=== PATIENT | female | born 1990 | race Caucasian/White ===

== ENCOUNTER 2017-01-11 19:31 | Observation (INO) | payer OTHER ==
[~2017-01-11] VITALS: Ht 162.6 cm; Wt 102.1 kg
[2017-01-11] MEDS ORDERED: SODIUM CHLORIDE 0.9% FLUSH 10 ML FLUSH IV FLUSH PRN (20:30)
[2017-01-11] MEDS ORDERED: ZOLPIDEM TARTRATE 5 MG TAB PO PRN (20:30)
[2017-01-11] MEDS ORDERED: ONDANSETRON HCL 4 MG/2 ML VIAL IV PUSH PRN (20:30)
[2017-01-11] MEDS ORDERED: ALUMINUM/MAGNESIUM/SIMETH 30 ML CUP PO PRN (20:30)
--- NOTE | 2017-01-11 20:37 | HHI.HP ---
HPI Chief Complaint 34 week IUP with contractions, spotting and decreased movement Date Seen: Jan 11, 2017 Time Seen: 20:31 Travel History International Travel<30 Days: No Contact w/Intl Traveler<30Days: No Known Affected Area: No History of Present Illness HPI 26 yo sf P0 at 34 weeks who is a patient of Dr. Day here with above concerns. Baby began to move on arrival. having lower back pain that comes and goes. No leaking, No HOLLOWAY ,N V or RUQT Weeks Gestation: 34 Para: 0 : 1 History Past Medical History Medical History: Denies Significant Hx Past Surgical History Surgical History: No Previous Surgery Family History Family History: Negative Social History Alcohol Use: No Tobacco Use: No Substance Abuse: No Allergies-Medications (Allergen,Severity, Reaction): Coded Allergies: No Known Allergies (Unverified , 01/11/17) Review of Systems General / Constitutional: No: Fever, Weight Gain, Chills, Other Physical Exam Narrative GENERAL: Well-nourished, well-developed patient. SKIN: Warm and dry. HEAD: Normocephalic and atraumatic. EYES: No scleral icterus. No injection or drainage. ENT: No nasal drainage noted. Mucous membranes pink. Airway patent. NECK: Supple, trachea midline. No JVD. CARDIOVASCULAR: Regular rate and rhythm without murmurs, gallops, or rubs. RESPIRATORY: Breath sounds equal bilaterally. No accessory muscle use. BREASTS: Bilateral exam showed no masses , no retractions, no nipple discharge. ABDOMEN/GI: Abdomen soft, non-tender, bowel sounds present, no rebound, no guarding Gravid to [-] weeks size Fundal Height: [-] long/closed/posterior category 1 strip EXTREMITIES: No cyanosis or edema. BACK: Nontender without obvious deformity. No CVA tenderness. NEUROLOGICAL: Awake and alert. Motor and sensory grossly within normal limits. Five out of 5 muscle strength in all muscle groups. Normal speech. Caprini VTE Risk Assessment Caprini VTE Risk Assessment: No/Low Risk (score <= 1) Caprini Risk Assessment Model Point Value = 1 Point Value = 2 Point Value = 3 Point Value = 5 Age 41-60 Minor surgery BMI > 25 kg/m2 Swollen legs Varicose veins or History of unexplained or recurrent spontaneous Oral contraceptives or hormone replacement Sepsis (< 1 month) Serious lung disease, including pneumonia (< 1 month) Abnormal pulmonary function Acute myocardial infarction Congestive heart failure (< 1 month) History of inflammatory bowel disease Medical patient at bed rest Age 61-74 Arthroscopic surgery Major open surgery (> 45 min) Laparoscopic surgery (> 45 min) Malignancy Confined to bed (> 72 hours) Immobilizing plaster cast Central venous access Age >= 75 History of VTE Family history of VTE Factor V Leiden Prothrombin [id number] Lupus anticoagulant Anticardiolipin antibodies Elevated serum homocysteine Heparin-induced thrombocytopenia Other congenital or acquired thrombophilia Stroke (< 1 month) Elective arthroplasty Hip, pelvis, or leg fracture Acute spinal cord injury (< 1 month) Prophylaxis Regimen Total Risk Factor Score Risk Level Prophylaxis Regimen 0-1 Low Early ambulation 2 Moderate Order ONE of the following: *Sequential Compression Device (SCD) *Heparin 5000 units SQ BID 3-4 Higher Order ONE of the following medications: *Heparin 5000 units SQ TID *Enoxaparin/Lovenox 40 mg SQ daily (WT < 150 kg, CrCl > 30 mL/min) *Enoxaparin/Lovenox 30 mg SQ daily (WT < 150 kg, CrCl > 10-29 mL/min) *Enoxaparin/Lovenox 30 mg SQ BID (WT < 150 kg, CrCl > 30 mL/min) AND/OR *Sequential Compression Device (SCD) 5 or more Highest Order ONE of the following medications: *Heparin 5000 units SQ TID (Preferred with Epidurals) *Enoxaparin/Lovenox 40 mg SQ daily (WT < 150 kg, CrCl > 30 mL/min) *Enoxaparin/Lovenox 30 mg SQ daily (WT < 150 kg, CrCl > 10-29 mL/min) *Enoxaparin/Lovenox 30 mg SQ BID (WT < 150 kg, CrCl > 30 mL/min) AND *Sequential Compression Device (SCD) Assessment/Plan Assessment and Plan 34 week IUP with mild ucs and spotting today no obvious etiology mild ucs on strip\will treat with hydration, ancef give procardia and ACS likely discharge in the am. Zuleyka Schaffer MD Jan 11, 2017 20:37
[2017-01-11] MEDS: SODIUM CHLORIDE 0.9% FLUSH 10 ML FLUSH IV FLUSH SCH (21:00)
[2017-01-11 21:38] LABS: AUTOMATED NEUTROPHIL # 9.7 TH/MM3 (1.8-7.7); BASOPHIL % 0.2 % (0.0-2.0); EOSINOPHIL # 0.1 TH/MM3 (0-0.4); EOSINOPHIL % 0.8 % (0.0-4.0); HEMATOCRIT 36.9 % (35.0-46.0); LYMPH % 16.5 % (9.0-44.0); LYMPHOCYTE # 2.2 TH/MM3 (1.0-4.8); MEAN CELL VOLUME 87.9 FL (80.0-100.0); MEAN CORPUSCULAR HEMOGLOBIN 29.4 PG (27.0-34.0); MEAN CORPUSCULAR HGB CONC 33.4 % (32.0-36.0); NEUT % 73.5 % (16.0-70.0); PLATELET COUNT 188 TH/MM3 (150-450); RED BLOOD COUNT 4.19 MIL/MM3 (4.00-5.30); RED CELL DISTRIBUTION WIDTH 14.4 % (11.6-17.2); WHITE BLOOD COUNT 13.2 TH/MM3 (4.0-11.0)
[2017-01-11 21:42] LABS: HEMO FLAGS AUTO DIFF
[2017-01-11 21:50] LABS: BICARBONATE 21.8 MEQ/L (21.0-32.0); POTASSIUM 4.1 MEQ/L (3.5-5.1)
[2017-01-11 21:51] LABS: BACTERIA, URINE RARE /hpf; BLOOD, URINE NEG (NEG); COMMENT (UR) CULT NOT INDICATED; CULTURE IF INDICATED CULT NOT INDICATED; GLUCOSE,URINE NEG (NEG); KETONE, URINE NEG (NEG); NITRITE,URINE NEG (NEG); SQUAMOUS EPITHELIAL CELL URINE <1 /hpf (0-5); URINE COLOR COLORLESS (YELLW/STRAW)
[2017-01-11 21:58] VITALS: BP 111/61; PULSE 95; RESP 18; TEMP 97.9
[2017-01-11] MEDS ORDERED: BETAMETHASONE SOD PHOS/ACETATE SUSP 30 MG/5 ML VIAL IM SCH (22:00)
[2017-01-11 22:18] LABS: BANDS 5 % (0-6); MYELOCYTES 2 % (0-0); NEUTROPHIL # MANUAL DIFF 9.4 TH/MM3 (1.8-7.7); PLATELET ESTIMATE SMEAR NORMAL (NORMAL); PLATELET MORPHOLOGY NORMAL (NORMAL); POLYS (SEG NEUTROPHILS) 64 % (16-70); SCAN/DIFF FINAL DIFF MANUAL; WBC DIFF SAMPLE 100
[2017-01-11] MEDS ORDERED: PREN29TA PO (22:53)
[2017-01-11] MEDS ORDERED: LISD20 PO (22:55)
[2017-01-11] MEDS: NIFEdipine 10 MG CAP PO SCH (23:03)
[2017-01-11] MEDS: LACTATED RINGER'S 1000 ML INJ 1,000 ML IV SCH (23:04)
[2017-01-11 23:11] VITALS: BP 108/61; PULSE 100
[2017-01-11 23:12] VITALS: RESP 18
[2017-01-11 23:15] VITALS: TEMP 98
[2017-01-11] MEDS ORDERED: ceFAZolin INJ 1,000 MG VIAL IM ONE (23:15)
[2017-01-12] MEDS ORDERED: ceFAZolin 1,000 MG/NS 100 ML IV ONE ×2 (00:15)
[2017-01-12 01:48] VITALS: RESP 18
[2017-01-12 01:49] VITALS: BP 85/65; PULSE 102; TEMP 98
[2017-01-12 04:30] VITALS: BP 113/50; PULSE 92; RESP 18
[2017-01-12 04:44] VITALS: TEMP 97.8
[2017-01-12] MEDS: NIFEdipine 10 MG CAP PO SCH (07:21)
[2017-01-12] MEDS: LACTATED RINGER'S 1000 ML INJ 1,000 ML IV SCH (07:22)
--- NOTE | 2017-01-12 08:23 | PD.OB.ANTE ---
Subjective Interval History Quiet night less cramping no spotting Objective Vital Signs Vital Signs Date Time Temp Pulse Resp B/P (MAP) Pulse Ox O2 Delivery O2 Flow Rate FiO2 01/12/17 04:44 97.8 01/12/17 04:30 18 01/12/17 04:30 92 113/50 (71) 01/12/17 01:49 98.0 01/12/17 01:49 102 85/65 (72) 01/12/17 01:48 18 01/11/17 23:15 98.0 01/11/17 23:12 18 01/11/17 23:11 100 01/11/17 23:11 108/61 (77) 01/11/17 21:58 97.9 95 18 111/61 (78) Lab & Micro Results Test 01/11/17 19:45 01/11/17 20:45 Urine Color COLORLESS Urine Turbidity CLEAR Urine pH 7.0 Urine Specific [place] 1.004 Urine Protein NEG mg/dL Urine Glucose (UA) NEG mg/dL Urine Ketones NEG mg/dL Urine Occult Blood NEG Urine Nitrite NEG Urine Bilirubin NEG Urine Urobilinogen LESS THAN 2.0 MG/DL Urine Leukocyte Esterase MOD Urine RBC LESS THAN 1 /hpf Urine WBC 1 /hpf Urine Squamous Epithelial Cells <1 /hpf Urine Bacteria RARE /hpf Microscopic Urinalysis Comment CULT NOT INDICATED Urine Opiates Screen NEG Urine Barbiturates Screen NEG Urine Amphetamines Screen NEG Urine Benzodiazepines Screen NEG Urine Cocaine Screen NEG Urine Cannabinoids Screen NEG White Blood Count 13.2 TH/MM3 Red Blood Count 4.19 MIL/MM3 Hemoglobin 12.3 GM/DL Hematocrit 36.9 % Mean Corpuscular Volume 87.9 FL Mean Corpuscular Hemoglobin 29.4 PG Mean Corpuscular Hemoglobin Concent 33.4 % Red Cell Distribution Width 14.4 % Platelet Count 188 TH/MM3 Mean Platelet Volume 8.9 FL Neutrophils (%) (Auto) 73.5 % Lymphocytes (%) (Auto) 16.5 % Monocytes (%) (Auto) 9.0 % Eosinophils (%) (Auto) 0.8 % Basophils (%) (Auto) 0.2 % Neutrophils # (Auto) 9.7 TH/MM3 Lymphocytes # (Auto) 2.2 TH/MM3 Monocytes # (Auto) 1.2 TH/MM3 Eosinophils # (Auto) 0.1 TH/MM3 Basophils # (Auto) 0.0 TH/MM3 CBC Comment AUTO DIFF Differential Total Cells Counted 100 Neutrophils % (Manual) 64 % Band Neutrophils % 5 % Lymphocytes % 26 % Monocytes % 3 % Neutrophils # (Manual) 9.4 TH/MM3 Myelocytes 2 % Differential Comment FINAL DIFF MANUAL Platelet Estimate NORMAL Platelet Morphology Comment NORMAL Blood Urea Nitrogen 10 MG/DL Creatinine 0.50 MG/DL Random Glucose 96 MG/DL Calcium Level 8.6 MG/DL Sodium Level 135 MEQ/L Potassium Level 4.1 MEQ/L Chloride Level 104 MEQ/L Carbon Dioxide Level 21.8 MEQ/L Anion Gap 9 MEQ/L Estimat Glomerular Filtration Rate 149 ML/MIN Physical Exam GENERAL: Well-nourished, well-developed patient. CARDIOVASCULAR: Regular rate and rhythm without murmurs, gallops, or rubs. RESPIRATORY: Breath sounds equal bilaterally. No accessory muscle use. ABDOMEN/GI: Abdomen soft, non-tender. 34 cm cervix 80% effaced/closed /anterior and soft category 1 strip mild uterine irritablity only EXTREMITIES: No cyanosis or edema, non-tender, without signs of DVT. Assessment and Plan Assessment and Plan 34 week IUP with mild ucs and spotting today no obvious etiology mild ucs on strip\will treat with hydration, ancef give procardia and ACS likely discharge in the am. HD 2 34 4/7 IUP WITH RESOLUTION OF SYMPTOMS ON PROCARDIA. RECEIVED ACS AND ONE GRAM ANCEF HOME TODAY ON MODIFIED REST (SHE IS A MEDICAL STUDENT IN A NON TRADITIONAL PROGRAM HOME AFTER SECOND ACS INJECTION Zuleyka Schaffer MD Jan 12, 2017 08:23
[2017-01-12] MEDS ORDERED: NIFE1TAB85 PO (08:25)
--- NOTE | 2017-01-12 08:25 | HHI.DCPOC ---
Discharge Care Plan Report Symptoms to Your Doctor -Temperature above 100.5 degrees -Redness, of incision or excessive or foul smelling drainage -Unusual pain or calf pain -Increased vaginal bleeding -Painful or difficulty urinating -Feelings of extreme sadness or anxiety after 2 weeks Goals to Promote Your Health * To prevent worsening of your condition and complications * To maintain your health at the optimal level Directions to Meet Your Goals Take your medications as prescribed Follow your dietary instruction Follow activity as directed Ensure plenty of rest for recovery Drink fluids for hydration Keep your appointments as scheduled Take your immunizations and boosters as scheduled If your symptoms worsen call your PCP, if no PCP go to Urgent Care Center or Emergency Room Smoking is Dangerous to Your Health. Avoid second hand smoke Call the 24-hour crisis hotline for domestic abuse at Zuleyka Schaffer MD Jan 12, 2017 08:25
[2017-01-12] MEDS: SODIUM CHLORIDE 0.9% FLUSH 10 ML FLUSH IV FLUSH SCH (09:00)
[2017-01-12] MEDS ORDERED: MULTIVIT/MIN/PREN/FOL AC/IRON PRENATAL TAB PO SCH (09:00)
[2017-01-12] MEDS ORDERED: BETAMETHASONE SOD PHOS/ACETATE SUSP 30 MG/5 ML VIAL IM ONE (10:00)
[2017-01-15 10:46] LABS: PHENCYCLIDINE URINE NEG (NEG)
[2017-01-15 10:47] LABS: BATH SALTS (MDPV) UR NEG (NEG); ECSTASY (MDMA) UR NEG (NEG); HEROIN (6-ACETYLMORPHINE) UR NEG (NEG); K2 SPICE UR NEG (NEG); OBGABAPENTIN UR NEG (NEG); OBHYDROMORPHONE U NEG (NEG); OBMETHADONE UR NEG (NEG)
== END 2017-01-12 11:06 | disposition home or self-care (01) ==
LOC: HOBED 19:31 → H2EA 20:34
PROVIDERS: ADMIT Obstetrics & Gynecology; ATTEND Obstetrics & Gynecology
DX: O47.03 False labor before 37 completed weeks of gestation, third trimester (principal); Z3A.34 34 weeks gestation of pregnancy; Z03.89 Encounter for observation for other suspected diseases and conditions ruled out
CPT/HCPCS: 80048; 80307; 81001; 85007; 85027; 96360; 96361; 96372; 99285; G0378; G0481; J0690; J0702; J7120

== ENCOUNTER 2017-02-06 21:45 | Emergency (ER) | payer OTHER ==
[~2017-02-06] VITALS: Ht 162.6 cm; Wt 106.6 kg
[~2017-02-06 21:45] MED LIST: LISD20 PO; NIFE1TAB85 PO; PREN29TA PO
--- NOTE | 2017-02-06 23:10 | PD ---
History of Present Illness History of Present Illness NST report Indications: IUP at 38 weeks, maternal obesity, decreased movement heart rate with baseline in the 120s, moderate long-term variability, good accelerations, no decelerations noted. There is a reactive NST and a category 1 heart rate tracing Follow-up: As clinically indicated Final diagnosis: IUP at 38 weeks, maternal obesity, decreased movement resolved and reassuring testing with reactive NST and biophysical profile 8 out of 8 Valeri Mejia MD Feb 06, 2017 23:10
--- NOTE | 2017-02-06 23:18 | PD ---
HPI Chief Complaint Leaking of fluid, decreased movement Travel History International Travel<30 Days: No Contact w/Intl Traveler<30Days: No Known Affected Area: No History of Present Illness HPI 26-year-old G2 1 P0, IUP at 38.1 care, complicated by maternal obesity, GBS positive The patient presents complaining of decreased movement since 5 PM. She attempted to do kick counts with only 1 movement noted however now reports she is feeling normal movement. She also reports that she's been having intermittent uterine cramping. She reports that she woke up from a nap about 4:30 PM with her shorts drenched with fluid but denies leaking of fluid since. She also reports that she has had an upper respiratory infection for 2- 3 days. She reports that she had an episode of very vigorous coughing this afternoon to the point that she had an episode of emesis with mucus in her recent food intake. She reports that she felt nauseous about a half-hour later and had another small episode of emesis, but denies any further emesis and has been able to tolerate by mouth intake. She denies any vaginal bleeding or painful contractions. Weeks Gestation: 38 Para: 0 History Past Surgical History Narrative Surgical Hand surgery Family History Family History: Negative Social History Alcohol Use: No Tobacco Use: No Substance Abuse: No Allergies-Medications (Allergen,Severity, Reaction): Coded Allergies: No Known Allergies (Unverified , 02/06/17) Home Meds Reported Medications Lisdexamfetamine (Vyvanse) 20 Mg Cap, 20 MG PO DAILY Y for weekends, #30 CAP 0 Refills 01/11/17 Vit-Iron Carbonyl ( Plus Iron 29-1 mg) 29 Mg Iron-1 Mg Tab, 1 TAB PO DAILY for Nutritional Supplement, #30 TAB 0 Refills 01/11/17 Review of Systems Except as stated in HPI: all other systems reviewed are Neg Physical Exam Narrative GENERAL: Well-nourished, well-developed patient. SKIN: Warm and dry. HEAD: Normocephalic and atraumatic. EYES: No scleral icterus. No injection or drainage. ENT: No nasal drainage noted. Mucous membranes pink. Airway patent. NECK: Supple, trachea midline. No JVD. CARDIOVASCULAR: Regular rate and rhythm without murmurs, gallops, or rubs. RESPIRATORY: Breath sounds equal bilaterally. No accessory muscle use. BREASTS: Deferred ABDOMEN/GI: Abdomen soft, non-tender, bowel sounds present, no rebound, no guarding Gravid GENITOURINARY: External Genitalia: intact and normal in appearance. Grossly normal BUS. No evidence of gross rupture of membrane. Amniosure negative. Grossly normal rugated, no cervical or vaginal masses noted. SVE 1/30-40/-3/posterior FHT's: heart tones in the 120s with moderate long-term variability, good accelerations, no decelerations noted EXTREMITIES: No cyanosis or edema. BACK: Nontender without obvious deformity. NEUROLOGICAL: Awake and alert. Motor and sensory grossly within normal limits. Five out of 5 muscle strength in all muscle groups. Normal speech. Psychiatric: Grossly normal memory and affect Musculoskeletal: Grossly normal range of motion, gait, muscle strength Data Data Orders Orders Us Ob Bpp Wo Nst (02/06/17 ) Vital Signs (Adult) .ON ADMISSION (02/06/17 22:39) ^ Labor Status (02/06/17 22:39) ^ Hydration (02/06/17 22:39) MDM Plan Assessment/plan: 1. IUP at 38.1 2. Decreased movement: Patient now feels normal movement. Reassuring testing with reactive NST, biophysical profile was performed and was 8 out of 8 for total score of 10 out of 10 3. Leaking of fluid: No evidence of gross rupture of membranes, amniosure negative, FERNANDO normal informal ultrasound. PROM precautions are given. 4. No evidence of active labor, strict labor precautions are given 5. Maternal obesity 6. well-being: Reassuring testing with reactive NST and a category 1 heart rate tracing. FHR reassuring and appropriate for gestational age. BPP 10 out of 10. kick counts daily. 7. Follow up with primary OB in 2-3 days or sooner if needed 8. Emesis: Likely related to bilateral coughing episode, return if further episodes of emesis however none since approximately 5 PM and has tolerated regular diet since. Patient advised to return for nausea vomiting diarrhea or other signs of gastroenteritis. 9. URI: Follow-up for fever or chills or abdominal normal color discharge or other concerns, follow-up if no resolution by 1 week length of symptoms Diagnosis Diagnosis: Primary Impression: 38 weeks gestation of Additional Impression: False labor after 37 weeks of gestation without delivery Disposition: 01 DISCHARGE HOME Condition: Valeri Franco MD Feb 06, 2017 23:18
== END 2017-02-06 23:50 | disposition home or self-care (01) ==
LOC: HOBED 21:45
DX: O47.1 False labor at or after 37 completed weeks of gestation (principal); O99.513 Diseases of the respiratory system complicating pregnancy, third trimester; J06.9 Acute upper respiratory infection, unspecified; O99.213 Obesity complicating pregnancy, third trimester; E66.9 Obesity, unspecified; Z3A.38 38 weeks gestation of pregnancy
CPT/HCPCS: 59025; 76815; 76816; 76819; 84112

== ENCOUNTER 2017-02-16 15:59 | Emergency (ER) | payer OTHER ==
[~2017-02-16 15:59] MED LIST changes: -NIFE1TAB85 PO
--- NOTE | 2017-02-16 18:53 | PD ---
HPI Chief Complaint Leaking of fluid Travel History International Travel<30 Days: No Contact w/Intl Traveler<30Days: No Known Affected Area: No History of Present Illness HPI 26-year-old , IUP at 39.4 care, complicated by obesity, 70 pound weight gain, GBS positive Patient presents complaining of some mucus the streaks of blood today. She was seen in the office yesterday and had a vaginal exam. She denies any vaginal bleeding. She also reports that her pants and underwear were soaked at 1725 yesterday, she reports that she used 1 pad and then change the pad at 12:30 this afternoon and has not required another pad since, She said she noted clear fluid. She denies any other leaking of fluid except as described. She reports good movement. She denies any regular painful contractions. Weeks Gestation: 39 Para: 0 : 2 History Past Medical History Narrative Medical Obesity Obstetric History Obstetric History , SAB 1 Past Surgical History Narrative Surgical Hand surgery Family History Family History: Negative Social History Alcohol Use: No Tobacco Use: No Substance Abuse: No Allergies-Medications (Allergen,Severity, Reaction): Coded Allergies: No Known Allergies (Unverified , 02/06/17) Home Meds Reported Medications Lisdexamfetamine (Vyvanse) 20 Mg Cap, 20 MG PO DAILY Y for weekends, #30 CAP 0 Refills 01/11/17 Vit-Iron Carbonyl ( Plus Iron 29-1 mg) 29 Mg Iron-1 Mg Tab, 1 TAB PO DAILY for Nutritional Supplement, #30 TAB 0 Refills 01/11/17 Review of Systems Except as stated in HPI: all other systems reviewed are Neg Physical Exam Narrative GENERAL: Well-nourished, well-developed patient. SKIN: Warm and dry. HEAD: Normocephalic and atraumatic. EYES: No scleral icterus. No injection or drainage. ENT: No nasal drainage noted. Mucous membranes pink. Airway patent. NECK: Supple, trachea midline. No JVD. CARDIOVASCULAR: Regular rate and rhythm without murmurs, gallops, or rubs. RESPIRATORY: Breath sounds equal bilaterally. No accessory muscle use. BREASTS: Deferred ABDOMEN/GI: Abdomen soft, non-tender, bowel sounds present, no rebound, no guarding Gravid GENITOURINARY: External Genitalia: intact and normal in appearance. Normal BUS. Physiologic discharge noted. No evidence of vaginal bleeding. Valsalva negative. Grossly normal rugae. No cervical or vaginal masses noted. SVE 2-3/ thick/high, posterior. membranes were palpated. Amniosure negative. FHT's: heart tones are in the 120s with moderate long-term variability, good accelerations, no decelerations EXTREMITIES: No cyanosis or edema. BACK: Nontender without obvious deformity. No CVA tenderness. NEUROLOGICAL: Awake and alert. Motor and sensory grossly within normal limits. Five out of 5 muscle strength in all muscle groups. Normal speech. Psychiatric: Grossly normal memory and affect Musculoskeletal: Grossly normal range of motion, gait, muscle strength MDM Plan Assessment/plan: 1. IUP at 39.4 2. No evidence of PROM: Negative amniosure, negative Valsalva, and normal fluid on ultrasound. Strict PROM precautions 3. Obesity 4. No evidence of labor, labor precautions 5. No evidence of vaginal bleeding 6. well-being: Reassuring testing with reactive NST and category 1 heart rate tracing. In addition of BPP was performed which was 8 out of 8 or 10 out of 10 with addition of the NST. FHR is reassuring and appropriate for gestational age. kick counts daily. 7. Follow up with primary OB in 3 days for scheduled or sooner if needed Diagnosis Diagnosis: Primary Impression: 39 weeks gestation of Additional Impression: Encounter for suspected PROM, with rupture of membranes not found Disposition: 01 DISCHARGE HOME Condition: Valeri Franco MD Feb 16, 2017 18:53
--- NOTE | 2017-02-16 18:59 | PD ---
History of Present Illness History of Present Illness NST and biophysical report Indications: IUP at 39 weeks, obesity, GBS positive, bleeding/leaking of fluid NST with heart rate baseline in the 120s with moderate long-term variability, good accelerations, no decelerations noted. The patient has a reactive NST and category 1 heart rate tracing A biophysical profile was performed BPP 8/8 and an FERNANDO of 12.47 with pockets of fluid at 3.30, 4.88, 2.99, 1.30. Gravid and 30 seconds breathing was noted flexion/extension, numerous movements, and normal FERNANDO meeting all criteria for a BPP of 8 out of 8 with NST component 10 out of 10 Final diagnosis IUP at 39 weeks, obesity, GBS positive, no evidence of PROM or vaginal bleeding, reassuring testing Follow-up as clinically indicated Valeri Mejia MD Feb 16, 2017 18:59
== END 2017-02-16 21:37 | disposition home or self-care (01) ==
LOC: HOBED 15:59
DX: O26.893 Other specified pregnancy related conditions, third trimester (principal); Z3A.39 39 weeks gestation of pregnancy
CPT/HCPCS: 59025; 76815; 84112

== ENCOUNTER 2017-02-19 05:12 | Inpatient (IN) | payer OTHER ==
--- NOTE | 2017-02-17 17:13 | MH ---
cc: KI MORRIS M.D. DATE OF ADMISSION 02/19/2017 DATE OF 1990 ADMISSION DIAGNOSIS Term for elective section. PATIENT HISTORY The patient is a 26-year-old female 2, para 0, last menstrual period was May 26, 2016. The patient's estimated gestational age is 39 weeks and 5 days at the time of this dictation, she will be 40 weeks by the time she is admitted. Her due date is confirmed by serial ultrasounds with first trimester ultrasounds confirming February 192016. The patient has a long history of ADHD and Vyvanse use through her psychiatrist. She also has a history of anxiety disorder. 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 Estimated weight is 9 pounds. Given these obstetrical factors, the recommendation is to proceed with elective section. ALLERGIES NO KNOWN DRUG ALLERGIES. PAST MEDICAL HISTORY 1. She has had hand surgery in the past for minor issue. 2. Status post spontaneous miscarriage in 2008 with a D&C. She denies any other systemic or chronic disease states. MEDICATIONS Current medications include: vitamins. She is no longer on Vyvanse. She was taking 20 milligrams alternating with 30 milligrams. The patient's group B strep status is positive. The patient's care has been unremarkable except for the fact that she has had significant weight gain. Her prepregnancy weight was approximately 170. Her recent weight in the office was 240. The patient's one hour Glucola was normal. The patient's blood type is A+. FAMILY HISTORY Noncontributory. PAST SURGICAL HISTORY Noncontributory. PHYSICAL EXAMINATION GENERAL: The patient is well-appearing, well-nourished female in no distress. VITAL SIGNS: Stable. Blood pressures 122/78. She weighs 240 pounds. She is 5 feet 4 inches. heart tones are in the 140s. HEENT: The patient's HEENT shows no adenopathy, thyromegaly. NECK: Supple. Full range of motion. LUNGS: Clear in all rubi. CARDIOVASCULAR: Cardiac is regular rate and rhythm. ABDOMEN: Gravid, full-term, fundal height is 42 cm. PELVIC: The patient's cervical exam was 50% and closed, posterior -2 position. Intact vertex presentation. NEUROLOGIC: The patient's neurologic examination is grossly intact, nonfocal. EXTREMITIES: Symmetrical, full range of motion. She has 1+ edema. Deep tendon reflexes were normal. No clonus. ASSESSMENT The patient at 40 weeks intrauterine gestation with large for gestational age baby, marginal pelvimetry with android pelvis, narrow pubic arch, history of anxiety disorder and ADHD, severe. GBS positive. PLAN Management admission for elective section at term. The patient will receive Ancef 2 grams prophylactically IV. Ki Morris MD [facility]/KK /4:40 PM /4:48 PM
[~2017-02-19] VITALS: Ht 162.6 cm; Wt 67.6 kg
[2017-02-19] VITALS (11 sets, daily range): BP systolic 108–126; BP diastolic 56–89; PULSE 87–101; RESP 15–20; TEMP 97.8–98.7; O2SAT 97–100
[2017-02-19 05:42] LABS: AUTOMATED NEUTROPHIL # 11.3 TH/MM3 (1.8-7.7); BASOPHIL # 0.1 TH/MM3 (0-0.2); BASOPHIL % 0.4 % (0.0-2.0); EOSINOPHIL # 0.1 TH/MM3 (0-0.4); EOSINOPHIL % 0.7 % (0.0-4.0); HEMATOCRIT 35.2 % (35.0-46.0); HEMOGLOBIN 12.3 GM/DL (11.6-15.3); LYMPH % 14.3 % (9.0-44.0); LYMPHOCYTE # 2.1 TH/MM3 (1.0-4.8); MEAN CELL VOLUME 87.2 FL (80.0-100.0); MEAN CORPUSCULAR HEMOGLOBIN 30.4 PG (27.0-34.0); MEAN CORPUSCULAR HGB CONC 34.9 % (32.0-36.0); MEAN PLATELET VOLUME 8.8 FL (7.0-11.0); MONO % 6.4 % (0.0-8.0); MONOCYTE # 0.9 TH/MM3 (0-0.9); NEUT % 78.2 % (16.0-70.0); PLATELET COUNT 194 TH/MM3 (150-450); RED BLOOD COUNT 4.04 MIL/MM3 (4.00-5.30); RED CELL DISTRIBUTION WIDTH 14.9 % (11.6-17.2); WHITE BLOOD COUNT 14.4 TH/MM3 (4.0-11.0)
[2017-02-19] MEDS ORDERED: CITRIC ACID-SODIUM CITRATE LIQ 30 ML UDC PO SCH (05:45)
[2017-02-19] MEDS ORDERED: LACTATED RINGER'S 1000 ML IV ONE (05:45)
[2017-02-19] MEDS ORDERED: ceFAZolin 2 GM PREMIX 50 ML IV SCH (05:45)
[2017-02-19 05:51] LABS: BACTERIA, URINE RARE /hpf; BILIRUBIN, URINE NEG (NEG); BLOOD, URINE NEG (NEG); GLUCOSE,URINE NEG (NEG); HYALINE CAST, URINE 4 /lpf (RARE); KETONE, URINE NEG (NEG); MUCUS URINE FEW /lpf (OCC); NITRITE,URINE NEG (NEG); PH, URINE 6.5 (5.0-8.5); SQUAMOUS EPITHELIAL CELL URINE 9 /hpf (0-5); TRANSITIONAL EPI CELLS, URINE <1 /hpf; URINE COLOR YELLOW (YELLW/STRAW); URINE LEUKOCYTE ESTERASE MOD (NEG)
[2017-02-19] MEDS: LACTATED RINGER'S 1000 ML IV SCH ×2 (06:29→19:20)
[2017-02-19 06:42] LABS: BANDS 12 % (0-6); LYMPHOCYTES 9 % (9-44); METAMYELOCYTES 1 % (0-1); MONOCYTES 6 % (0-8); NEUTROPHIL # MANUAL DIFF 12.2 TH/MM3 (1.8-7.7); POLYS (SEG NEUTROPHILS) 72 % (16-70)
[2017-02-19] MEDS ORDERED: ACETAMINOPHEN 1000 MG/100 ML 100 ML IV ONE (07:17)
[2017-02-19] MEDS ORDERED: MORPHINE SULFATE PF 5 MG/10 ML VIAL ONE (07:21)
--- NOTE | 2017-02-19 07:36 | HHI.DS ---
Admission Date Feb 19, 2017 at 05:12 Admitting Diagnosis Diagnosis: Delivery Date: Feb 19, 2017 : Primary Pt Condition on Discharge: Good Discharge Disposition: Discharge Home Discharge Instructions Diet Instructions: As Tolerated, No Restrictions Activities You Can Perform: Regular-No Restrictions, Shower Only-No Bath Activities to Avoid: Prolonged Standing, Strenuous Activity, Driving, Sexual Activity iK Day MD Feb 19, 2017 07:36
[2017-02-19] MEDS ORDERED: ONDANSETRON HCL 4 MG/2 ML VIAL IV PUSH PRN (07:45)
[2017-02-19] MEDS ORDERED: SODIUM CHLORIDE 0.9% FLUSH 10 ML FLUSH IV FLUSH PRN (07:45)
[2017-02-19] MEDS ORDERED: KETOROLAC TROMETHAMINE 60 MG/2 ML (IM) VIAL IM PRN (07:45)
[2017-02-19] MEDS ORDERED: SIMETHICONE 80 MG CHEWABLE TAB PO PRN (07:45)
[2017-02-19] MEDS ORDERED: oxyCODONE/ACETAMINOPHEN 5 MG/325 MG TAB PO PRN (07:45)
[2017-02-19] MEDS ORDERED: OXYTOCIN 30 UNITS-500ML PREMIX 500 ML IV ONE (08:00)
--- NOTE | 2017-02-19 08:54 | PD.OB.DELI ---
Procedure Note Section Procedure Performed by Ki Day Procedure: Primary Low Transverse Sec Indication for delivery: Maternal medical problems Informed consent obtained: For anesthesia, For procedure Confirmed correct: Patient, Procedure, Site, Time-out taken Anesthesia: Spinal Medication prior to procedure: As documented in eMAR Monitoring during procedure: Blood pressure monitoring, playground monitor, doppler, Pulse oximetry Urinary catheter: Inserted using sterile technique, To dependent drainage Sterile preparation: Duraprep, In usual fashion Position: Supine with wedge to right side, Supine with safety belt applied Operative Features Skin Incision: Pfannenstiel Uterine Incision: Low transverse w/knife / scissors Membranes Ruptured: Artificially Presentation: Occiput anterior Delivery date: Feb 19, 2017 Delivery time: 07:56 Delivery of : Assisted (vacuum x 1 pull) : Male One Minute : 8 Five Minute : 9 Weight: 3340 / 7#6oz Status of : Viable Placenta delivered: Intact Medications: Antibiotics, Oxytocin Procedure tolerated: Well Maternal Condition: Stable Condition: Stable Ki Day MD Feb 19, 2017 08:54
[2017-02-19] MEDS: SODIUM CHLORIDE 0.9% FLUSH 10 ML FLUSH IV FLUSH SCH ×2 (09:00→21:00)
[2017-02-19] MEDS ORDERED: OXYTOCIN 30 UNITS-500ML PREMIX 500 ML ONE (09:43)
[2017-02-19] MEDS ORDERED: EPIDURAL-NALOXONE HCL 0.4 MG/ML AMP IV PUSH PRN (10:15)
[2017-02-19] MEDS ORDERED: EPIDURAL-DIPHENHYDRAMINE HCL 50 MG CAP PO PRN (10:15)
[2017-02-19] MEDS ORDERED: EPIDURAL-DIPHENHYDRAMINE HCL 50 MG/ML VIAL IV PUSH PRN (10:15)
[2017-02-19] MEDS ORDERED: EPIDURAL-DO NOT ADMINISTER ANTICOAGULANTS PRN (10:15)
[2017-02-19] MEDS ORDERED: EPIDURAL-NO SYSTEMIC NARCOTICS PRN (10:15)
[2017-02-19] MEDS ORDERED: LACTATED RINGER'S 1000 ML INJ 1,000 ML IV SCH (12:33)
[2017-02-19] MEDS: IBUPROFEN 600 MG TAB PO PRN ×2 (16:49→22:53)
[2017-02-19] MEDS ORDERED: OXYTOCIN 30 UNITS-500ML PREMIX 500 ML IV PRN (17:45)
[2017-02-19] MEDS: DOCUSATE SODIUM 50 MG/SENNA 8.6 MG TAB PO PRN (22:52)
[2017-02-20] MEDS: LACTATED RINGER'S 1000 ML IV SCH ×2 (01:29→20:07)
[2017-02-20 04:00] VITALS: BP 107/60; PULSE 86; RESP 18; TEMP 97.9; O2SAT 97
[2017-02-20] MEDS: IBUPROFEN 600 MG TAB PO PRN ×3 (05:02→18:30)
[2017-02-20 08:00] VITALS: BP 119/62; PULSE 90; RESP 18; TEMP 97.6; O2SAT 98
[2017-02-20 09:32] LABS: AUTOMATED NEUTROPHIL # 10.7 TH/MM3 (1.8-7.7); BASOPHIL % 0.1 % (0.0-2.0); EOSINOPHIL # 0.1 TH/MM3 (0-0.4); EOSINOPHIL % 0.5 % (0.0-4.0); HEMATOCRIT 27.8 % (35.0-46.0); HEMOGLOBIN 9.7 GM/DL (11.6-15.3); LYMPH % 12.2 % (9.0-44.0); LYMPHOCYTE # 1.7 TH/MM3 (1.0-4.8); MEAN CELL VOLUME 87.4 FL (80.0-100.0); MEAN CORPUSCULAR HEMOGLOBIN 30.4 PG (27.0-34.0); MEAN CORPUSCULAR HGB CONC 34.8 % (32.0-36.0); MEAN PLATELET VOLUME 8.8 FL (7.0-11.0); MONO % 8.3 % (0.0-8.0); MONOCYTE # 1.1 TH/MM3 (0-0.9); NEUT % 78.9 % (16.0-70.0); PLATELET COUNT 151 TH/MM3 (150-450); RED BLOOD COUNT 3.18 MIL/MM3 (4.00-5.30); RED CELL DISTRIBUTION WIDTH 14.4 % (11.6-17.2); WHITE BLOOD COUNT 13.6 TH/MM3 (4.0-11.0)
[2017-02-20] MEDS: oxyCODONE/ACETAMINOPHEN 5 MG/325 MG TAB PO PRN ×3 (09:46→22:23)
[2017-02-20 12:00] VITALS: BP 115/62; PULSE 71; RESP 18; TEMP 98.1; O2SAT 99
--- NOTE | 2017-02-20 12:09 | HHI.OB ---
Subjective Post Operative Day: 1 Remarks Doing well Pain is controlled Baby is doing well Bleeding is normal. Objective Vitals/I&O Vital Signs Date Time Temp Pulse Resp B/P (MAP) Pulse Ox O2 Delivery O2 Flow Rate FiO2 02/20/17 08:00 97.6 90 18 119/62 (81) 98 02/20/17 04:00 97.9 86 18 107/60 (76) 97 02/19/17 23:42 90 18 115/67 (83) 02/19/17 23:42 98.2 98 02/19/17 20:00 98.4 96 20 109/56 (73) 97 02/19/17 14:30 97.9 02/19/17 14:30 95 18 122/61 (81) 97 Result Diagram: 02/20/17 08 Objective Remarks GENERAL: Well-nourished, well-developed patient. CARDIOVASCULAR: Regular rate and rhythm without murmurs, gallops, or rubs. RESPIRATORY: Breath sounds equal bilaterally. No accessory muscle use. ABDOMEN/GI: Abdomen soft, non-tender, bowel sounds present. Incision: Clean, dry and intact. Fundus: Firm, non-tender at umbilicus. GENITOURINARY: Light to moderate bleeding. EXTREMITIES: No cyanosis or edema, non-tender, without signs of DVT. Medications and IVs Current Medications Medications (Trade) Dose Ordered Sig/Kimmie Route Start Time Stop Time Status Last Admin Lactated Ringer's 1,000 ml @ 150 mls/hr Q6H40M IV 02/19/17 05:45 02/19/17 19:20 (Bicitra Liq) 30 ml [facility]ULT [facility] C[facility] PO 02/19/17 05:45 02/22/17 05:44 02/19/17 09:07 Cefazolin Sodium/ Dextrose 50 ml @ 100 mls/hr ADULT [employer] IN CAREG[facility] IV 02/19/17 05:45 02/22/17 05:44 02/19/17 09:07 Oxytocin 500 ml @ 100 mls/hr UNSCH X1 PRN IV 02/19/17 17:45 02/20/17 17:44 (NS Flush) 2 ml BID IV FLUSH 02/19/17 09:00 (NS Flush) 2 ml UNSCH PRN IV FLUSH 02/19/17 07:45 (Mylicon Chew) 80 mg QID PRN PO 02/19/17 07:45 (Motrin) 600 mg Q6H PRN PO 02/19/17 07:45 02/20/17 05:02 (Percocet 5-325 Mg) 1 tab Q4H PRN PO 02/19/17 07:45 02/20/17 09:46 (Percocet 5-325 Mg) 2 tab Q4H PRN PO 02/19/17 07:45 (Cindy-Colace) 2 tab Q12H PRN PO 02/19/17 07:45 02/19/17 22:52 (M-M-R Ii Inj) 0.5 ml ONCE ONCE SQ 02/20/17 16:00 02/20/17 16:01 (Boostrix Inj) 0.5 ml ONCE ONCE IM 02/20/17 16:00 02/20/17 16:01 (Zofran Inj) 4 mg Q6H PRN IV PUSH 02/19/17 07:45 Assessment/Plan Problem List: (1) Anemia ICD Codes: D64.9 - Anemia, unspecified Status: Acute Qualifiers: (2) delivery delivered ICD Codes: O82 - Encounter for delivery without indication Assessment and Plan POD #1 Anemia will start Fe when she is off the percocet Doing well Routine care Odilia Rivera MD Feb 20, 2017 12:09
[2017-02-20] MEDS ORDERED: OXYC1TAB63 PO (12:14)
[2017-02-20] MEDS ORDERED: IBUP-232 PO (12:14)
[2017-02-20] MEDS ORDERED: DIPHTH/TETANUS/ACEL PERTUSSIS (BOOSTER) 0.5 ML VIAL/PFS IM ONE (16:00)
[2017-02-20] MEDS ORDERED: MEASLES, MUMPS, RUBELLA VACCINE 0.5 ML VIAL SQ ONE (16:00)
[2017-02-20] MEDS: SODIUM CHLORIDE 0.9% FLUSH 10 ML FLUSH IV FLUSH SCH (20:07)
[2017-02-20] MEDS: DOCUSATE SODIUM 50 MG/SENNA 8.6 MG TAB PO PRN (22:21)
--- NOTE | 2017-02-20 23:08 | MP ---
cc: PATRICIA MORRIS DATE OF SURGERY 02/19/2017 PREOPERATIVE DIAGNOSIS Patient with term 40-week intrauterine gestation with contracted maternal pelvis, suspect macrosomia. Estimated weight greater than 8 pounds, anxiety adjustment disorder with adult attention deficit disorder. PROCEDURE Primary low transverse section, delivery of viable male infant. POSTOPERATIVE DIAGNOSIS Patient with term 40-week intrauterine gestation with contracted maternal pelvis, suspect macrosomia. Estimated weight greater than 8 pounds, anxiety adjustment disorder with adult attention deficit disorder. Baby weighed 7 pounds 6 ounces with Apgars 8 at 1 minutes and 9 at 5. ANESTHESIA Spinal ESTIMATED BLOOD LOSS 600 mL. DRAINS Guallpa to gravity OPERATIVE FINDINGS The patient had male infant delivered from LOT position with a vacuum just for one pull. Three-vessel cord, clear fluid, intact placenta. Again, baby weighed 7 pounds 6 ounces with Apgars 8 at 1-minute and 9 at 5. PROCEDURE IN DETAIL The patient received Ancef 2 grams prophylactically. She underwent a spinal anesthetic without complication. She was prepped and draped. Guallpa was inserted by sterile technique and she had sequentials placed on the lower extremities for VTE prophylaxis. After she was prepped and draped, time-out was conducted, agreed by all present in the room. The patient had excellent pain control. The Pfannenstiel incision was used. The incision was made slightly elliptical above the pubic symphysis using a #10 blade. The incision was carried through the skin down through the subcutaneous layer scoring the fascia in the midline extending it sharply. Any active arterial bleeding was cauterized during the procedure. The fascia was then dissected from the rectus muscle the rectus muscle in the midline identifying the peritoneum and opening it sharply. The bladder blade was placed over the pubic symphysis. A transverse incision was made in the lower uterine segment with clear fluid. The infant vertex was delivered with the aid of a vacuum extractor and infant was delivered in total with good tone and cry. Cord was doubly clamped and cut. Infant was taken to isolette by the nursery staff. Cord sample was obtained for blood typing and then placenta was removed intact with trailing membranes. Uterus was explored. There was no retained tissue. The uterus was then closed using a double layer closure with 0 Monocryl, first was a running locking suture followed by a second imbricating suture. The patient was receiving Pitocin IV with good contractions and involution of the uterus. The uterus was explored. Ovaries and uterus were normal. The full count was made and correct after confirming hemostasis of the lower uterine segment and then closing the peritoneum with a running suture of 2-0 Monocryl reapproximating the muscle belly with loose interrupted mattress suture of 2-0 Monocryl and then closing the fascia with 0 Vicryl in a simple running fashion with good result. Subcutaneous layer was irrigated. Any active bleeding was cauterized. It was closed with a running suture of 2-0 Monocryl and then a subcuticular stitch of 0 Stratifix was used as a bidirectional barbed suture to close the skin. Good result was noted. Steri-Strips were applied to the incision and then a dressing was applied. At the completion of the case, final count was correct. The patient was stable. Infant was doing well in the nursery. MD DEEPAK Rogers/ /2:16 PM /10:43 PM
[2017-02-21] MEDS: IBUPROFEN 600 MG TAB PO PRN ×3 (00:58→15:08)
[2017-02-21] MEDS: oxyCODONE/ACETAMINOPHEN 5 MG/325 MG TAB PO PRN ×4 (00:59→13:01)
[2017-02-21] MEDS: LACTATED RINGER'S 1000 ML IV SCH (03:33)
[2017-02-21 07:30] VITALS: BP 115/63; PULSE 91; RESP 20; TEMP 97.8
[2017-02-21] MEDS: SODIUM CHLORIDE 0.9% FLUSH 10 ML FLUSH IV FLUSH SCH (09:00)
[2017-02-21] MEDS: DOCUSATE SODIUM 50 MG/SENNA 8.6 MG TAB PO PRN (13:01)
--- NOTE | 2017-02-21 13:52 | HHI.OB ---
Subjective Post Operative Day: 2 Remarks Doing well Pain is well controlled Will you circ my baby?? Bleeding is normal Objective Vitals/I&O Vital Signs Date Time Temp Pulse Resp B/P (MAP) Pulse Ox O2 Delivery O2 Flow Rate FiO2 02/21/17 07:30 91 115/63 (80) 02/21/17 07:30 97.8 20 Result Diagram: 02/20/17 08 Objective Remarks GENERAL: Well-nourished, well-developed patient. CARDIOVASCULAR: Regular rate and rhythm without murmurs, gallops, or rubs. RESPIRATORY: Breath sounds equal bilaterally. No accessory muscle use. ABDOMEN/GI: Abdomen soft, non-tender, bowel sounds present. Incision: Clean, dry and intact. Fundus: Firm, non-tender at umbilicus. GENITOURINARY: Light to moderate bleeding. EXTREMITIES: No cyanosis or edema, non-tender, without signs of DVT. Medications and IVs Current Medications Medications (Trade) Dose Ordered Sig/Kimmie Route Start Time Stop Time Status Last Admin Lactated Ringer's 1,000 ml @ 150 mls/hr Q6H40M IV 02/19/17 05:45 02/19/17 19:20 (Bicitra Liq) 30 ml [facility] AID PO 02/19/17 05:45 02/22/17 05:44 02/19/17 09:07 Cefazolin Sodium/ Dextrose 50 ml @ 100 mls/hr [facility]IT AID IV 02/19/17 05:45 02/22/17 05:44 02/19/17 09:07 (NS Flush) 2 ml BID IV FLUSH 02/19/17 09:00 (NS Flush) 2 ml UNSCH PRN IV FLUSH 02/19/17 07:45 (Mylicon Chew) 80 mg QID PRN PO 02/19/17 07:45 (Motrin) 600 mg Q6H PRN PO 02/19/17 07:45 02/21/17 08:57 (Percocet 5-325 Mg) 1 tab Q4H PRN PO 02/19/17 07:45 02/21/17 13:01 (Percocet 5-325 Mg) 2 tab Q4H PRN PO 02/19/17 07:45 02/20/17 18:30 (Cindy-Colace) 2 tab Q12H PRN PO 02/19/17 07:45 02/21/17 13:01 (Zofran Inj) 4 mg Q6H PRN IV PUSH 02/19/17 07:45 Assessment/Plan Problem List: (1) Anemia ICD Codes: D64.9 - Anemia, unspecified Status: Acute Qualifiers: (2) delivery delivered ICD Codes: O82 - Encounter for delivery without indication Assessment and Plan POD #2 Anemia will start Fe when she is off the percocet Doing well Routine [facility] today. Odilia Rivera MD Feb 21, 2017 13:52
== END 2017-02-21 17:39 | disposition home or self-care (01) | DRG 766 ==
LOC: H2EB 05:12 → H1EA 10:12
PROVIDERS: ADMIT Obstetrics & Gynecology; ATTEND Obstetrics & Gynecology
PROC: 10D00Z1 Extraction of Products of Conception, Low, Open Approach (ICD-10-PCS; principal; 2017-02-19)
DX: O99.344 Other mental disorders complicating childbirth (principal); D64.9 Anemia, unspecified; O99.02 Anemia complicating childbirth; F43.22 Adjustment disorder with anxiety; O33.3XX0 Maternal care for disproportion due to outlet contraction of pelvis, not applicable or unspecified; O99.824 Streptococcus B carrier state complicating childbirth; O36.63X0 Maternal care for excessive fetal growth, third trimester, not applicable or unspecified; Z3A.40 40 weeks gestation of pregnancy; Z37.0 Single live birth
CPT/HCPCS: 59025; 76815; 80307; 81001; 84112; 85007; 85025; 85027; 86850; 86900; 86901; J0131; J0690; J2274; J2590; J7120